=== PATIENT | female | born 1985 | race Caucasian/White ===

== ENCOUNTER 2016-12-26 20:51 | Emergency (ER) | payer MEDICAID ==
[~2016-12-26] VITALS: Ht 154.9 cm; Wt 92.1 kg
[2016-12-26 21:14] VITALS: BP_SYST 205
[2016-12-26] MEDS ORDERED: NACL 0.9% 1,000 ML IV ONE (21:30)
[2016-12-26] MEDS ORDERED: amLODIPine BESYLATE 5 MG TABLET PO ONE (21:30)
[2016-12-26] MEDS ORDERED: cloNIDine HCL 0.1 MG TABLET PO ONE (21:30)
[2016-12-26] MEDS ORDERED: KETOROLAC TROMETHAMINE 30 MG VIAL IVP ONE (21:30)
[2016-12-26] MEDS ORDERED: PENICILLIN G BENZATHINE 1.2 MMU/2 ML SYR IM ONE (21:30)
[2016-12-26] MEDS ORDERED: methylPREDNISolone SOD SUCC/PF 62.5 MG/ML VIAL IVP ONE (21:30)
[2016-12-26 21:39] LABS: BASOPHILS # (AUTO) 0.1 K/uL (0.0-0.2); BASOPHILS % (AUTO) 0.6 % (0.0-2.0); EOSINOPHILS % (AUTO) 0.3 % (0.0-4.0); HEMATOCRIT 45.3 % (36-48); HEMOGLOBIN 15.3 g/dL (12.0-16.0); LYMPHOCYTES # (AUTO) 2.5 K/uL (1.0-5.5); LYMPHOCYTES % (AUTO) 21.4 % (20.5-51.5); MEAN CORPUSCULAR HEMOGLOBIN 27 pg (27-31); MEAN CORPUSCULAR HGB CONC 34 % (32-36); MEAN CORPUSCULAR VOLUME 81 fL (79.0-98.0); MONOCYTES # (AUTO) 0.7 K/uL (0.0-1.0); MONOCYTES % (AUTO) 5.9 % (1.7-9.3); NEUTROPHILS # (AUTO) 8.3 K/uL (1.8-7.7); NEUTROPHILS % (AUTO) 71.8 % (40.0-70.0); PLATELET COUNT (AUTO) 383 K/uL (130-430); RED BLOOD CELL COUNT(AUTO) 5.58 MIL/uL (4.2-6.2); RED CELL DISTRIBUTION WIDTH 11.6 % (9.0-15.0); WHITE BLOOD COUNT (AUTO) 11.6 K/uL (4.8-10.8)
[2016-12-26 21:48] LABS: CREATININE 0.73 mg/dL (0.55-1.30); POTASSIUM 3.9 mmol/L (3.5-5.1)
[2016-12-26 21:53] LABS: ALBUMIN 3.4 g/dL (3.4-4.8); TOTAL BILIRUBIN 0.3 mg/dL (0.0-1.0); TOTAL PROTEIN, SERUM 8.7 g/dL (6.4-8.3)
[2016-12-26] MEDS ORDERED: INSULIN REGULAR, HUMAN 10 UNITS/0.1 ML INJ IVP ONE (22:15)
[2016-12-26] MEDS ORDERED: LORazepam 2 MG/ML VIAL IVP ONE (23:00)
[2016-12-26 23:04] LABS: BILIRUBIN,URINE NEGATIVE (NEGATIVE); BLOOD, URINE 1+ (NEGATIVE); CLARITY/URINE CLOUDY (CLEAR); COLOR,URINE YELLOW (YELLOW); GLUCOSE,URINE 3+ (NEGATIVE); KETONES,URINE NEGATIVE (NEGATIVE); LEUKOCYTE ESTERASE ,URINE TRACE (NEGATIVE); NITRITE, URINE NEGATIVE (NEGATIVE); PROTEIN URINE 3+ (NEGATIVE)
[2016-12-26] MEDS ORDERED: LORazepam 2 MG/ML VIAL (FOR ER USE) ONE (23:17)
[2016-12-26 23:31] LABS: BACTERIA,URINE MANY /HPF (None Seen)
[2016-12-26 23:32] LABS: MUCUS,URINE 1+ /LPF (None Seen); YEAST,URINE Few /HPF (None Seen)
[2016-12-26 23:52] VITALS: BP_SYST 161
== END 2016-12-26 23:52 | disposition home or self-care (01) ==
LOC: SED 22:28
DX: J02.0 Streptococcal pharyngitis (principal); E11.8 Type 2 diabetes mellitus with unspecified complications; N39.0 Urinary tract infection, site not specified; I10 Essential (primary) hypertension; Z83.3 Family history of diabetes mellitus; Z91.14 Patient's other noncompliance with medication regimen
CPT/HCPCS: 36415; 80053; 81000; 81025; 85025; 87040; 87086; 93005; 96361; 96372; 96374; 96375; 99285; J0561; J1815; J1885; J2060; J2930; J7030